=== PATIENT | male | born 1945 | race Caucasian/White ===

== ENCOUNTER → 2020-01-27 | Outpatient (CLI) | payer MEDICARE ==
[~2020-01-27] MED LIST: ENAL20TA PO; INSASP10V SQ; INSU100V6 SQ; METO25TA2 PO; MTF500T PO
--- NOTE | 2020-01-27 16:53 | Diagnostic Imaging Report ---
CLINICAL INDICATION: Patient with back pain. Evaluate lumbar spine. EXAM: MRI of the lumbar spine performed without IV contrast. Sagittal T2, sagittal T1, sagittal stir, axial T1, and axial T2. COMPARISON: None. FINDINGS: There is no acute lumbar spine fracture or dislocation. 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 There are Modic type 2 degenerative signal changes involving multiple lumbar levels. The visualized portions of the distal thoracic spinal cord, conus medullaris, and cauda equina nerve roots are unremarkable. The conus medullaris tip is seen at the upper L1 vertebral body level. There is no significant paraspinal soft tissue abnormality. There are mild to moderately hypertrophic lumbar spine spurs seen throughout and there is facet arthropathy. T12-L1: There is mild facet arthropathy. There is no significant central spinal canal or neural foramen narrowing. L1-L2: There is a diffuse disc bulge and mild bilateral facet arthropathy. There is [id number] left neural foramen narrowing and mild right neural foramen narrowing. There is no significant central canal stenosis. L2-L3: There is a diffuse disc bulge and mild facet arthropathy. There is moderate bilateral neural foramen narrowing. There is no significant central canal narrowing. L3-L4: There is a diffuse disc bulge with disc spurs extending into the right foraminal region. There is mild bilateral facet arthropathy. There is no significant central canal narrowing. There is severe right neural foramen narrowing and [id number] left neural foramen narrowing. L4-L5: There is a diffuse disc bulge and moderate bilateral facet arthropathy. There is no significant central canal narrowing. There is severe right neural foramen narrowing and [id number] left neural foramen narrowing. L5-S1: There is a mild diffuse disc bulge with severe bilateral facet arthropathy/hypertrophy. There is no significant central spinal canal or neural foramen narrowing. IMPRESSION: There is multilevel lumbar spine degenerative disease with diffuse disc bulges, disc spurs, and facet arthropathy, as described above. Dictated by: Dictated on workstation # [id number]
== END ==
LOC: RAD 11:27
PROVIDERS: ATTEND Nurse Practitioner
DX: M47.816 Spondylosis without myelopathy or radiculopathy, lumbar region (principal); M51.16 Intervertebral disc disorders with radiculopathy, lumbar region; M77.9 Enthesopathy, unspecified
CPT/HCPCS: 72148